=== PATIENT | female | born 1960 | race Caucasian/White ===

== ENCOUNTER → 2023-12-30 15:37 | Outpatient (REF) | payer OTHER, SELFPAY | LOC: WDC 15:37 | PROVIDERS: ATTENDING PHYSICIAN Physician Assistant Medical | DX: Z12.31 Encounter for screening mammogram for malignant neoplasm of breast (principal) | CPT/HCPCS: 77063; 77067 ==

== ENCOUNTER → 2025-08-11 14:56 | Outpatient (REF) | payer OTHER, SELFPAY | LOC: HWRCS 14:56 | PROVIDERS: ATTENDING PHYSICIAN Physician Assistant Medical | DX: I51.7 Cardiomegaly (principal) | CPT/HCPCS: 93306 ==